=== PATIENT | female | born 1960 | race Caucasian/White ===

== ENCOUNTER 2024-10-24 15:14 | Emergency (ER) | payer OTHER, SELFPAY ==
[2024-10-24 15:21] VITALS: BP 211/113
--- NOTE | 2024-10-24 16:39 | ED.GENMED ---
History of Present Illness
General
Chief Complaint: Nose Bleed
Time Seen by Provider: 10/24/24 16:39
History of Present Illness
History of Present Illness:
TIME OF INITIAL ENCOUNTER: 4:45 PM
HPI: Patient presents due to nosebleeds. She was found to be markedly hypertensive in triage. suspects that there is a component of anxiety as well. She has no other sources of bleeding such as rectal bleeding, no petechial rash.
EXAM:
GENERAL: Well appearing in no distress, she is hypertensive
HEENT: Moist oral mucosa, there is a scant amount of blood/blood clot in the lower left anterior nasal septum
CARDIOVASCULAR: No murmurs, normal heart rate, regular rhythm, No chest wall tenderness
PULMONARY: No respiratory distress, breath sounds are clear and equal
ABDOMEN: Soft with no peritoneal signs, no tenderness
NEUROLOGIC: Excellent strength all extremities, no coordination deficits
PSYCHIATRIC: Appropriate mental status, normal insight and judgement
EXTREMITIES: Nontender, no edema, moves all extremities equally
SKIN: No rash, no lesions
NUMBER AND COMPLEXITY OF PROBLEMS ADDRESSED AT THE ENCOUNTER
� Chronic conditions affecting care: Anxiety, migraines, headache
� Acute Exacerbation and/or Progression of Chronic Illness: This is an acute problem
� Differential Diagnosis includes: Nosebleed due to dry air, anterior nosebleed, posterior nosebleed, hypertensive urgency, thrombocytopenia
AMOUNT AND/OR COMPLEXITY OF DATA TO BE REVIEWED AND ANALYZED
� I performed an independent evaluation of and my interpretation is:
EKG:
CT:
X-rays:
Laboratory Studies: White count 6.9, hemoglobin normal, chemistries unremarkable
Other:
� Review of other/old records: No old records available for review
� Clinical information was obtained by an independent historian: I spoke to at bedside
� Prescriptions/Medications Considered but not given:
� Further testing considered but not performed:
RISK OF COMPLICATIONS AND/OR MORBIDITY OR MORTALITY OF PATIENT MANAGEMENT
� Social determinants of health affecting care:
� Discussion with other providers:
� Escalation of care including admission/observation vs risk of discharge considered: Patient states that she has been told that she has had a few blood pressure readings that have been high in the past but not to the point that
she required blood pressure medication. However upon arrival her blood pressure systolic is over 200. Given that this is in the setting of a nosebleed, we will also give antihypertensive. Checking labs as well.
ANY OTHER UPDATES:
6:10 PM: I reassessed patient. We did talk about importance of blood pressure control. Will send prescription to [facility] for her to start losartan in the morning as she is traveling to [place] in the morning as well. No further
bleeding noted. Encouraged saline sprays. No further bleeding.
Phy Exam
Physical Exam
Physical Exam:
See HPI
Course
Orders/Labs/Results
Orders:
Orders
10/24/24 16:46
Losartan [Cozaar] 50 mg PO NOW STA
10/24/24 17:02
Complete Blood Count/With Diff Urgent
Comprehensive Metabolic Panel Urgent
Abnormal Lab Results
10/24/24
17:02
RBC 4.05 L 10^6/uL
(4.20-5.40)
MCH 31.9 H pg
(27.0-31.0)
Glucose 100 H mg/dl
(70-99)
ALT 42 H U/L
(0-35)
Albumin 5.1 H g/dl
(3.5-5.0)
10/24/24 17:02
10/24/24 17:02
Vital Signs
Initial and Last Documented VS:
Initial Vital Signs
Temp Pulse Resp BP Pulse Ox
36.6 C 112 18 211/113 96
10/24/24 15:21 10/24/24 15:21 10/24/24 15:21 10/24/24 15:21 10/24/24 15:21
Last Documented Vital Signs
Temp Pulse Resp BP Pulse Ox
36.6 C 98 18 166/79 97
10/24/24 15:21 10/24/24 17:05 10/24/24 15:21 10/24/24 18:09 10/24/24 18:09
*Critical Care Note
Total Time (30-74mins, 75-104mins- exclusive of procedures): Not Applicable
ED Attending Note
-
Portions of this chart may have been created with voice recognition software.� Occasional wrong word or��sound alike� substitutions may have occurred due to the inherent limitations of voice recognition software.
Discharge Plan
Departure
Patient Disposition: Home (Routine Discharge)
Date of Disposition: 10/24/24
Time of Disposition: 18:17
Patient with high blood pressure during this ER visit?: Yes
Discharge Problem:
Acute anterior epistaxis
Instructions: Nosebleeds (DC), BLOOD PRESSURE
Prescriptions:
New
losartan 50 mg tablet
50 mg PO DAILY Qty: 30 0RF
Activity Restrictions/Additional Instructions:
I sent a prescription to the [facility] pharmacy at [address] in [place]. Next dose of losartan in the morning. I have started you on blood pressure medication as your initial blood pressure here was 211/113. Very high blood pressure readings can
lead to nosebleeds. I also encourage the use of saline sprays to help keep the nasal mucosa moist. Follow-up your primary care doctor for blood pressure recheck.
Interventions
Interventions:
*Risk Screen - Suicide Last Done: 10/24/24 15:21
*General Assessment Last Done: 10/24/24 15:21
*Neglect/Abuse Screening Last Done: 10/24/24 15:21
ED-EENT Assessment Last Done: 10/24/24 17:12
Discharge Date and Time
Print Language: NIUEAN
[2024-10-24] MEDS: COZAAR 50 MG PO (17:05)
[2024-10-24 17:11] LABS: % Basophils 0.6 % (0-2); % Eosinophils 1.6 % (0-6); % Immature Granulocytes 0.1 % (0-0.5); % Lymphocytes 20.5 % (20.5-51.1); % Monocytes 6.4 % (1.7-9.3); % Neutrophils 70.8 % (42.2-75.2); Absolute Eosinophils 0.1 10^3/uL (0-0.7); Absolute Lymphocytes 1.4 10^3/uL (1.2-3.4); Absolute Monocytes 0.4 10^3/uL (0.1-0.6); Absolute Neutrophils 4.9 10^3/uL (1.4-6.5); Hematocrit 37.6 % (37.0-47.0); Hemoglobin 12.9 g/dL (12.0-16.0); Mean Corp Hgb Conc. 34.3 g/dL (33.0-37.0); Mean Corpuscular Hgb 31.9 pg (27.0-31.0); Mean Corpuscular Volume 92.8 fL (81.0-99.0); Mean Platelet Volume 9.6 fL (7.4-10.4); Nucleated Red Blood Cells % 0 %; Platelet Count 242 10^3/uL (130-400); Red Blood Cell Count 4.05 10^6/uL (4.20-5.40); Red Cell Dist. Width 12.5 % (11.5-14.5); White Blood Cell Count 6.9 10^3/uL (4.8-10.8)
[2024-10-24 17:33] LABS: ALT (SGPT) 42 U/L (0-35); AST (SGOT) 34 U/L (14-36); Albumin 5.1 g/dl (3.5-5.0); Alkaline Phosphatase 71 U/L (38-126); Blood Urea Nitrogen 13 mg/dl (7-17); Calcium 9.6 mg/dl (8.4-10.2); Carbon Dioxide 27 mmol/L (22-30); Chloride 106 mmol/L (98-107); Glucose 100 mg/dl (70-99); Potassium 4.1 mmol/L (3.5-5.1); Sodium 143 mmol/L (135-145); Total Bilirubin 0.4 mg/dl (0.2-1.3); Total Protein 7.8 g/dl (6.3-8.2); eGFR > 60.00
[2024-10-24 18:09] VITALS: BP 166/79
== END 2024-10-24 18:38 | disposition home or self-care (01) ==
LOC: EMR 15:14
PROVIDERS: EMERGENCY PHYSICIAN Emergency Medicine
DX: R04.0 Epistaxis (principal); I10 Essential (primary) hypertension
CPT/HCPCS: 99283; 80053; 85025

== ENCOUNTER 2024-11-02 20:16 | Emergency (ER) | payer OTHER, SELFPAY ==
[2024-11-02 20:23] VITALS: BP 208/120
[2024-11-02 20:47] LABS: % Basophils 0.7 % (0-2); % Eosinophils 4.2 % (0-6); % Immature Granulocytes 0.1 % (0-0.5); % Monocytes 8.4 % (1.7-9.3); % Neutrophils 56.6 % (42.2-75.2); Absolute Basophils 0.1 10^3/uL (0-0.2); Absolute Eosinophils 0.4 10^3/uL (0-0.7); Absolute Lymphocytes 2.5 10^3/uL (1.2-3.4); Absolute Monocytes 0.7 10^3/uL (0.1-0.6); Absolute Neutrophils 4.7 10^3/uL (1.4-6.5); Hematocrit 37.6 % (37.0-47.0); Hemoglobin 12.7 g/dL (12.0-16.0); Mean Corp Hgb Conc. 33.8 g/dL (33.0-37.0); Mean Corpuscular Hgb 31.7 pg (27.0-31.0); Mean Corpuscular Volume 93.8 fL (81.0-99.0); Nucleated Red Blood Cells % 0 %; Platelet Count 250 10^3/uL (130-400); Red Blood Cell Count 4.01 10^6/uL (4.20-5.40); Red Cell Dist. Width 12.3 % (11.5-14.5); White Blood Cell Count 8.4 10^3/uL (4.8-10.8)
[2024-11-02 21:01] LABS: ALT (SGPT) 25 U/L (0-35); AST (SGOT) 26 U/L (14-36); Albumin 4.9 g/dl (3.5-5.0); Alkaline Phosphatase 72 U/L (38-126); Blood Urea Nitrogen 13 mg/dl (7-17); Calcium 9.5 mg/dl (8.4-10.2); Carbon Dioxide 27 mmol/L (22-30); Chloride 103 mmol/L (98-107); Glucose 110 mg/dl (70-99); Potassium 4.5 mmol/L (3.5-5.1); Sodium 139 mmol/L (135-145); Total Bilirubin 0.4 mg/dl (0.2-1.3); Total Protein 7.3 g/dl (6.3-8.2); eGFR > 60.00
[2024-11-02 22:48] VITALS: BP 166/88
[2024-11-02 22:55] VITALS: BMI 32.3
[2024-11-02 23:00] VITALS: BP 171/83
--- NOTE | 2024-11-02 23:12 | ED.GENMED ---
History of Present Illness
<MARAL Ambriz - Last Filed: 11/03/24 00:31>
General
Chief Complaint: Blood Pressure Problem
Source: patient
Time Seen by Provider: 11/02/24 23:11
Nursing documentation reviewed up to this point in time: agreed with
History of Present Illness
History of Present Illness:
Pt is a 63 yo F who presents to the ED tonight for high blood pressure. Pt states that tonight she was going to the grocery store and she noticed her nose begin to bleed while in the car. Pt states she took her blood pressure at the machine in the
grocery store and the systolic measurement was over 200. She reports that she was able to control the nosebleed tonight. Pt was seen here on 10/24 for similar presentation of epistaxis with elevated blood pressure of systolic over 200. Pt was started
on losartan 50mg in the ED. Pt states she saw her PCP since being discharged from the ED and that she has taken the losartan everyday since she was prescribed it. Pt admits to having a mild headache that is located near her forehead. Pt denies
dizziness, chest pain, shortness of breath, lightheaded, syncope, N/V.
Patient's initial BP reading in ED was 208/120, current BP is 166/88.
Pt denies a previous history of HTN or being on blood pressure medication prior to 10/24. Pt denies taking any blood thinners.
Review of Systems
<MARAL Ambriz - Last Filed: 11/03/24 00:31>
Review of Systems
Allergies reviewed?: Yes
Constitutional: Reports no symptoms
EENT: Reports other (epistaxis)
Respiratory: Reports no symptoms
Cardiac: Reports other (elevated blood pressure)
ABD/GI: Reports no symptoms
Neurological: Reports headache
Phy Exam
<MARAL Ambriz - Last Filed: 11/03/24 00:31>
General Physical Exam
General Presentation: no apparent distress
General age: appears stated age
General Skin: warm
General Habitus: normal
General Mental: alert
General Hydration: appears well hydrated
ENT Exam
Additional ENT: Left nares began to bleed when patient was talking
Cardiovascular Exam
Cardiovascular Exam: regular rate/rhythm
Pulmonary Exam
Pulmonary Exam: lungs clear
Course
<MARAL Ambriz - Last Filed: 11/03/24 00:31>
Orders/Labs/Results
Orders:
Orders
11/02/24 20:27
Electrocardiogram (*1) Urgent
Reason for Study: Hypertension, Benign
11/02/24 20:28
EKG- Treatment ONCE
11/02/24 20:35
Complete Blood Count/With Diff Urgent
11/02/24 20:36
CMP [Comprehensive Metabolic Panel] Urgent
Abnormal Lab Results
11/02/24 11/02/24
20:35 20:36
RBC 4.01 L 10^6/uL
(4.20-5.40)
MCH 31.7 H pg
(27.0-31.0)
Absolute Monos (auto) 0.7 H 10^3/uL
(0.1-0.6)
Glucose 110 H mg/dl
(70-99)
11/02/24 20:35
11/02/24 20:36
Vital Signs
Initial and Last Documented VS:
Initial Vital Signs
Temp Pulse Resp BP Pulse Ox
98.5 F 106 22 208/120 100
11/02/24 20:23 11/02/24 20:23 11/02/24 20:23 11/02/24 20:23 11/02/24 20:23
Last Documented Vital Signs
Temp Pulse Resp BP Pulse Ox
98.5 F 95 23 111/64 100
11/02/24 20:23 11/03/24 01:00 11/03/24 01:00 11/03/24 01:00 11/02/24 20:23
<Adwoa Santoyo DO - Last Filed: 11/03/24 01:40>
Orders/Labs/Results
Orders:
Orders
11/02/24 20:27
Electrocardiogram (*1) Urgent
Reason for Study: Hypertension, Benign
11/02/24 20:28
EKG- Treatment ONCE
11/02/24 20:35
Complete Blood Count/With Diff Urgent
11/02/24 20:36
CMP [Comprehensive Metabolic Panel] Urgent
Abnormal Lab Results
11/02/24 11/02/24
20:35 20:36
RBC 4.01 L 10^6/uL
(4.20-5.40)
MCH 31.7 H pg
(27.0-31.0)
Absolute Monos (auto) 0.7 H 10^3/uL
(0.1-0.6)
Glucose 110 H mg/dl
(70-99)
11/02/24 20:35
11/02/24 20:36
Vital Signs
Initial and Last Documented VS:
Initial Vital Signs
Temp Pulse Resp BP Pulse Ox
98.5 F 106 22 208/120 100
11/02/24 20:23 11/02/24 20:23 11/02/24 20:23 11/02/24 20:23 11/02/24 20:23
Last Documented Vital Signs
Temp Pulse Resp BP Pulse Ox
98.5 F 95 23 111/64 100
11/02/24 20:23 11/03/24 01:00 11/03/24 01:00 11/03/24 01:00 11/02/24 20:23
Procedures
<MARAL Ambriz - Last Filed: 11/03/24 00:31>
Nosebleed
Drug treatment: Lidocaine and Epinephrine
Treatment: local pressure applied and Silver nitrate cautery
Post treatment bleeding: none- good control
<MARAL Ambriz - Last Filed: 11/03/24 00:31>
MDM/Problems Addressed
Differential Diagnosis Includes:
Hypertension, epistaxis
<MARAL Ambriz - Last Filed: 11/03/24 00:31>
*Critical Care Note
Total Time (30-74mins, 75-104mins- exclusive of procedures): Not Applicable
<Adwoa Santoyo DO - Last Filed: 11/03/24 01:40>
*Pulse Oximetry
Patient hypoxic: no
*EKG
Interpreted by ED Provider?: Yes
Interpretation: normal
Comparison EKG: no changes
Rate: normal
Rhythm: sinus
[place]: normal axis
Interval: normal interval
QRS Pattern: normal QRS
Ischemia: no ischemia
*Broadcaster Interpretation
Rate: normal
Interpretation: normal
Rhythm: sinus
ED Attending Note
<MARAL Ambriz - Last Filed: 11/03/24 00:31>
-
Portions of this chart may have been created with voice recognition software.� Occasional wrong word or��sound alike� substitutions may have occurred due to the inherent limitations of voice recognition software.
<Adwoa Santoyo DO - Last Filed: 11/03/24 01:40>
ED Attending Note
Patient seen and examined by attending physician: Yes
I performed the substantive portion of visit, reviewed & personally made and approve the management plan that is documented in note by myself or DOMENIC.: Yes
ED Attending Note:
This is a 63-year-old woman with history of asthma, recently diagnosed hypertension, migraine headaches, anxiety who presents with recurrent left nostril epistaxis that began abruptly tonight after sneezing several times. Initially evaluated in
this ED with similar left nostril epistaxis October 24. Epistaxis stopped with local pressure, did not require further intervention but during that ED visit was found to be significantly hypertensive. Was started on losartan 50 mg at that time
which she has continued and has since followed up with her PCP and has been monitoring her blood pressure at home. Blood pressure generally running 150s to 160s systolic.
She has had no recurrent epistaxis until tonight when bleeding recurred. She was concerned when she checked her blood pressure at home and it was elevated at 180/114.
Nosebleed persisted despite patient pinching her nose but upon arrival to the ED was educated by nursing staff how to properly pinch her nose and after doing so epistaxis has resolved.
Throughout this past week and a half she has been feeling well, no headache, no dizziness no lightheadedness.
She takes no anticoagulants save for occasional ibuprofen.
No nausea no vomiting, no abdominal pain.
She does note very mild headache now but has not had a headache throughout the week and denies headache with onset of nosebleed.
Initial blood pressure 208/120, has improved without intervention to 160/90.
GENERAL: Alert , in no apparent distress
EYE: pupils equal and reactive. anicteric
NECK: Supple, nontender, no meningismus, no significant adenopathy.
ENT: posterior pharynx is clear, oral mucosa is moist. TM clear b/l, no epistaxis. Left anterior septum with 1 pinpoint area of erythema which appears to be site of recent bleeding. There is no active bleeding. No residual clots. Right nostril
is clear.
CARDIAC: Regular rate and rhythm. no murmur.
LUNGS: Clear breath sounds bilaterally, no acute respiratory distress, no wheezes/rales/rhonchi
ABDOMEN: Soft, nondistended, without focal tenderness
NEUROLOGICAL: Alert and oriented x3, no focal neuro deficits. Gait is cain and steady.
SKIN: Warm and dry, normal color, skin intact. No rash.
MUSCULOSKELETAL: No C/C/E. peripheral pulses are full and equal b/l. No palpable tenderness.
PSYCH: Normal and appropriate interaction.
Patient presents with recurrent left anterior epistaxis which has stopped with local pressure.
Noted to be significantly hypertensive initially, improving without intervention.
Patient does have history of allergies, remote history of asthma, follows with an dog bather. Epistaxis began tonight after several sneezes and I suspect sneezing was cause for epistaxis and not elevated blood pressure.
As this is her second episode of epistaxis we will plan to locally cauterize this 1 pinpoint area with silver nitrate.
Labs again are unremarkable.
EKG is unremarkable and unchanged from previous.
She does note mild headache currently but this began after arrival to the ED and after epistaxis resolved. No focal neurodeficits. Hypertension is improving. Patient notes she gets frequent headaches and this is similar, overall mild. Imaging
considered but at this point not indicated.
01:14
Silver nitrate cautery to left anterior septum by PA student under my direct supervision.
We have continued to monitor in the ED. There is been no recurrent epistaxis.
Blood pressure has normalized to 111/64.
Patient denies dizziness or lightheadedness. Headache has resolved. Eager to be discharged to home.
Nosebleed precautions discussed.
Recommend she continue to monitor her blood pressure but to do so once a daily, record results and follow-up with PCP as already scheduled for recheck.
Will refer to ENT as well especially if epistaxis recurs.
Discharge Plan
Departure
Patient Disposition: Home (Routine Discharge)
Date of Disposition: 11/03/24
Time of Disposition: 01:14
Patient with high blood pressure during this ER visit?: No
Condition: Good
Discharge Problem:
Acute anterior epistaxis
Instructions: Nosebleeds ED
Prescriptions:
No Action
losartan 50 mg tablet
50 mg PO DAILY Qty: 30 0RF
Referrals:
UNKNOWN - PT DOES,NOT KNOW [Unknown Provider] -
Stephanie Rosado MD [Active] - As needed
Activity Restrictions/Additional Instructions:
Over the next 3 days, no blowing, no sniffing, no picking your nose. I also want you to hold off on saline nasal spray over the next 3 days, you can resume this on Saturday.
I do want you to apply a small film of antibiotic ointment such as bacitracin or Neosporin to the entrance to your nostrils once nightly.
Continue to monitor your blood pressure but only do this once daily, record results and put that cuff away.
Follow-up with your primary care physician as already planned for blood pressure recheck.
If nosebleed recurs, pinch your nose hard, and hold this for at least 5 minutes. Generally pinching your nose hard and holding for 5 to 10 minutes if successful in stopping nosebleeds. If bleeding recurs I want you to follow-up with ENT for
further evaluation and name has been provided above.
Interventions
Interventions:
*Risk Screen - Suicide Last Done: 11/02/24 20:23
*General Assessment Last Done: 11/02/24 22:55
*Neglect/Abuse Screening Last Done: 11/02/24 20:23
ED- Fall Risk Assessment Last Done: 11/02/24 22:55
ED- Cardiac Assessment Last Done: 11/02/24 22:55
ED- Neurological Assessment Last Done: 11/02/24 22:55
ED- Pulmonary Assessment Last Done: 11/02/24 22:55
Discharge Date and Time
Print Language: UPPER SORBIAN
[2024-11-03] VITALS: BP 160/99
[2024-11-03 01:00] VITALS: BP 111/64
--- NOTE | 2024-11-03 01:30 | EDRN ---
Patients BP coming down and nose is not bleeding anymore, patient to be discharged home.
== END 2024-11-03 01:50 | disposition home or self-care (01) ==
LOC: EMR 20:16
PROVIDERS: Emergency Medicine; EMERGENCY PHYSICIAN Emergency Medicine
DX: R04.0 Epistaxis (principal); I10 Essential (primary) hypertension
CPT/HCPCS: 99283; 80053; 85025; 93005